=== PATIENT | female | born 2005 | race Caucasian/White ===

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

== ENCOUNTER → 2025-02-01 | Outpatient (CLI) | payer BC ==
--- NOTE | 2025-02-02 18:31 | US ---
EXAMINATION TYPE: US transvaginal DATE OF EXAM: 02/01/2025 COMPARISON: CLINICAL INDICATION: Female, 19 years old with history of N94.6 DYSMENORRHEA; irregular periods with generalized pelvic pain TECHNIQUE: Transvaginal (TV). Transvaginal grayscale sonographic images of the pelvis were acquired. Doppler imaging: Not performed. FINDINGS: Date of LMP: 01/19/25, G0 EXAM MEASUREMENTS: Uterus: 7.1 x 3.8 x 3.3 cm Endometrial Stripe: 0.8 cm Right Ovary: 2.9 x 1.6 x 1.4 cm Left Ovary: 3.2 x 1.7 x 1.8 cm 1. Uterus: Anteverted wnl 2. Endometrium: wnl 3. Right Ovary: follicles seen 4. Left Ovary: follicles seen 5. Bilateral Adnexa: no free fluid seen 6. Posterior cul-de-sac: no free fluid, peristalsing fluid filled bowel IMPRESSION: 1. No acute pelvic ultrasound abnormality. O-RADS 2021 [email or web address] [email or web address], , 02/02/2025 6:28 PM
== END | disposition home or self-care (01) ==
LOC: RADUSWWP 15:16
PROVIDERS: ATTEND Family Medicine
DX: N94.6 Dysmenorrhea, unspecified (principal)
CPT/HCPCS: 76830